=== PATIENT | male | born 1960 | race Hispanic/Latino ===

== ENCOUNTER 2023-04-24 22:20 | Observation (INO) | payer MEDICARE ==
[~2023-04-24] VITALS: Ht 170.2 cm; Wt 62.0 kg
[2023-04-24] MEDS ORDERED: NITROGLYCERIN 1GM OINT 1 INCH/1GM TD ONE (23:54)
[2023-04-24] MEDS ORDERED: GLUCAGON 1MG KIT 1 MG ML ONE (23:54)
[2023-04-24] MEDS ORDERED: METOCLOPRAMIDE 10 MG/2 ML VIAL ONE (23:54)
[2023-04-25] MEDS ORDERED: ONDANSETRON 4MG INJ IVP PRN (05:30)
[2023-04-25] MEDS ORDERED: LORAZEPAM 2 MG/ML 1 ML VIAL IVP PRN (05:30)
[2023-04-25] MEDS: LACTATED RINGERS 1000ML 1,000 ML IV SCH ×2 (05:43→22:04)
[2023-04-25 06:11] LABS: BASOPHILS # (AUTO) 0.08 K/uL (0.00-0.20); EOSINOPHILS # (AUTO) 1.51 K/uL (0.00-0.70); EOSINOPHILS % (AUTO) 18.7 % (0.0-8.0); HEMATOCRIT 40.1 % (42-54); IMMATURE GRANULOCYTE ABSOLUTE 0.06 K/uL (0-1); LYMPHOCYTES # (AUTO) 1.2 K/uL (1.0-4.8); LYMPHOCYTES % (AUTO) 14.9 % (21.0-51.0); MEAN CORPUSCULAR HGB CONC 34.9 g/dL (32.0-36.0); MEAN CORPUSCULAR VOLUME 94.6 fL (79-99); MONOCYTES # (AUTO) 0.9 K/uL (0.1-1.0); MONOCYTES % (AUTO) 11.5 % (3.0-13.0); NEUTROPHILS # (AUTO) 4.3 K/uL (1.8-7.7); NEUTROPHILS % (AUTO) 53.2 % (40.0-77.0); PLATELET COUNT (AUTO) 147 K/uL (130-400); RED BLOOD CELL COUNT(AUTO) 4.24 MIL/uL (4.50-6.20); WHITE BLOOD COUNT (AUTO) 8.1 K/uL (4.8-10.8)
[2023-04-25 06:33] LABS: SARS-CoV-2, RNA, NAAT NEGATIVE SARS CoV-2 (NEGATIVE)
[2023-04-25 06:37] LABS: INR 0.96 (0.85-1.15); PROTHROMBIN TIME 11.2 SEC (9.6-11.6)
[2023-04-25 06:38] LABS: PARTIAL THROMBOPLASTIN TIME 29.7 SEC (26.3-35.5)
[2023-04-25 06:50] LABS: ALBUMIN 3.2 g/dL (3.5-5.0); CREATININE 0.6 mg/dL (0.5-1.5); PHOSPHORUS 3.8 mg/dL (2.5-4.9); POTASSIUM 3.7 mmol/L (3.5-5.1)
[2023-04-25 06:52] LABS: BILIRUBIN,TOTAL 1.5 mg/dL (0.2-1.0); MAGNESIUM 1.9 mg/dL (1.80-2.40); TOTAL PROTEIN, SERUM 7.9 g/dL (6.0-8.3)
[2023-04-25] MEDS: FAMOTIDINE 20MG VIAL IV SCH ×2 (10:08→22:05)
[2023-04-25 12:45] LABS: APPEARANCE,URINE CLEAR (CLEAR); BILIRUBIN,URINE NEGATIVE (NEGATIVE); COLOR,URINE YELLOW (YELLOW); GLUCOSE, URINE (UA) NEGATIVE (NEGATIVE); KETONES,URINE 20 mg/dL (NEGATIVE); LEUKOCYTE ESTERASE ,URINE NEGATIVE Leu/uL (NEGATIVE); NITRATE,URINE NEGATIVE (NEGATIVE); OCCULT BLOOD,URINE NEGATIVE (NEGATIVE); PROTEIN,URINE NEGATIVE (NEGATIVE); UROBILINOGEN,URINE 0.2 mg/dL (0.2-1.0)
[2023-04-25 12:47] LABS: ADD UA MICROSCOPIC YES
[2023-04-25 12:52] LABS: MUCUS,URINE RARE LPF (None Seen); RBC,URINE 0-1 /HPF (0-1); WBC,URINE 0-1 /HPF (0-1)
[2023-04-25 13:10] VITALS: BP 138/81; PULSE 61; RESP 20
[2023-04-25] MEDS ORDERED: LIDOCAINE PF 100MG/5ML (2%) SYRINGE 5ML ONE (13:22)
[2023-04-25] MEDS ORDERED: SUCCINYLCHOLINE 200MG/10ML SYR ONE (13:22)
[2023-04-25] MEDS ORDERED: DEXAMETHASONE SOD PHOSPHATE 10MG/ML 1ML VIAL ONE (13:22)
[2023-04-25] MEDS ORDERED: MIDAZOLAM HCL 1 MG/ML 2ML VIAL ONE (13:23)
[2023-04-25] MEDS ORDERED: GLYCOPYRROLATE 1 MG/5 ML SYRINGE ONE (13:23)
[2023-04-25] MEDS ORDERED: ONDANSETRON 4MG INJ ONE (13:23)
[2023-04-25] MEDS ORDERED: NEOSTIGMINE 5MG/5ML SYR IV ONE (13:23)
[2023-04-25] MEDS ORDERED: FENTANYL CITRATE PF 50 MCG/1 ML 2ML VIAL ONE (13:24)
[2023-04-25] MEDS ORDERED: PROPOFOL 10 MG/ML 20ML VIAL IV ONE (13:24)
[2023-04-25] MEDS ORDERED: ROCURONIUM 10MG/1ML SYR 10 MG/ML ML ONE (13:24)
[2023-04-25 22:25] VITALS: BP 109/80; PULSE 80; RESP 24; O2SAT 99
[2023-04-26 03:52] VITALS: BP 130/75; PULSE 54; RESP 21
[2023-04-26 05:11] LABS: HEMATOCRIT 37.8 % (42-54); MEAN CORPUSCULAR HEMOGLOBIN 32.9 pg (27.0-33.0); MEAN CORPUSCULAR HGB CONC 34.7 g/dL (32.0-36.0); RED BLOOD CELL COUNT(AUTO) 3.98 MIL/uL (4.50-6.20); RED CELL DISTRIBUTION WIDTH 12.5 % (11.0-15.5); WHITE BLOOD COUNT (AUTO) 10.7 K/uL (4.8-10.8)
[2023-04-26 05:34] LABS: ALBUMIN 2.7 g/dL (3.5-5.0); BILIRUBIN,TOTAL 1.3 mg/dL (0.2-1.0); CREATININE 0.8 mg/dL (0.5-1.5); MAGNESIUM 1.8 mg/dL (1.80-2.40); POTASSIUM 3.9 mmol/L (3.5-5.1); TOTAL PROTEIN, SERUM 7.1 g/dL (6.0-8.3)
[2023-04-26 08:00] VITALS: O2SAT 95
[2023-04-26] MEDS: FAMOTIDINE 20MG VIAL IV SCH (08:20)
[2023-04-26 08:31] VITALS: BP 138/74; PULSE 53; RESP 17
[2023-04-26] MEDS: LACTATED RINGERS 1000ML 1,000 ML IV SCH (09:45)
[2023-04-26 12:00] VITALS: BP 137/76; PULSE 54; RESP 17
[2023-04-26 16:00] VITALS: BP 135/76; PULSE 53; RESP 18
== END 2023-04-26 19:15 | disposition home or self-care (01) ==
LOC: EDH 22:20 → EDHIP 04-25 01:48 → INTOOBSV 04-25 01:48 → 4AH 04-25 22:21
PROVIDERS: ADMIT Internal Medicine; ATTEND Internal Medicine
DX: T18.128A Food in esophagus causing other injury, initial encounter (principal); Z20.822 Contact with and (suspected) exposure to COVID-19; R13.10 Dysphagia, unspecified; E44.1 Mild protein-calorie malnutrition; E87.1 Hypo-osmolality and hyponatremia; R74.01 Elevation of levels of liver transaminase levels; F10.10 Alcohol abuse, uncomplicated; Z79.899 Other long term (current) drug therapy
CPT/HCPCS: 99285; 96374; 96376 ×2; 83735 ×2; 84100; 80053 ×2; 85025; 85610; 85730; 86850; 86900; 86901; 87040 ×2; 81001; 36415 ×2; 87635; 71045; 43247; 93005; 85027; J1610; J2765; J7120; J3490 ×4; J3010; J0330; J1100; J2710; J2001; J2250; J2704; J2405; A4215; A4657 ×3; A7002; A4216; A4606; G0378 ×7; 96375

== ENCOUNTER 2024-08-05 20:24 | Emergency (ER) | payer MEDICARE ==
[~2024-08-05] VITALS: Ht 170.2 cm; Wt 65.5 kg
--- NOTE | 2024-08-05 22:16 | ERN ---
General Chief Complaint: Thumb Injury Pain Stated Complaint: RT THUMB Time Seen by MD: 20:27 History of Present Illness Initial Comments Mr Peres is a 63-year-old male with no significant past medical history who comes in with a subcutaneous tissue prominence over his right thumb. Patient reports that this subcutaneous prominence moved more distally from the base of his thumb. The patient was concerned that he may have an obstruction of his hand veins. Patient was no pain, numbness or sensation changes. He denies any trauma Allergies: Coded Allergies: No Known Allergies (Unverified Allergy, Unknown, 04/17/18) Home Meds No Active Prescriptions or Reported Meds Past Medical History Past Medical History: No Pertinent History Past Surgical History: None ROS Dictation Constitutional: Negative for fever,chills, and weight loss Eyes: Negative for injury, pain,redness, and discharge ENT: Negative for injury,pain or swelling Cardiovascular: Negative for chest pain, palpitations, and edema Respiratory: Negative for shortness of breath, cough, and wheezing, Abdomen/GI: Negative for abdominal pain, nausea, vomiting, diarrhea, and constipation Back: Negative for injury and pain : Negative for injury, bleeding and discharge MS/Extremity: Right thumb subcutaneous prominence Skin: Negative for rash, and discoloration Neuro: Negative for headache, weakness, numbness, tingling, and seizure Psych: Negative for suicide ideation, homicidal ideation, and hallucinations Physical Exam Physical Exam Dictation General: awake, alert, NAD Head/Face: Normocephalic, atraumatic Eyes: PERRL, EOMI, vision at baseline ENT: oral cavity clear, Neck: Trachea midline, supple, no nuchal rigidity Cardiovascular: RRR, normal S1/S2, No MRGs, no JVD Respiratory: CTAB, no respiratory distress, No rales or wheezes Abdomen: Soft, non-tender, non-distended, Skin: Warm, dry, normal turgor, no rash MS/Extremity: Subcutaneous rubbery prominence over base of right thumb. No pain with palpation Neuro: COAx4, GCS 15, strength 5/5, CN 2-12 intact, normal cerebellar exam, normal gait, Psych: Normal behavior, mood, and affect normal MDM Patient appears to have a subcutaneous cyst that will need to be investigated. Patient has no disability or pain associated with this. Patient will be advised to follow up with his primary care physician MDM: Differential diagnosis: Subcutaneous cyst Rationale: Tests considered and ordered secondary to shared decision making include: Previous outside records reviewed: Old ER visits. Risk of complication and/or morbidity or mortality of patient management: None Medications-Per medication reconciliation Need for hospitalization: Patient does not meet criteria for hospitalization. Need for emergency major/minor surgery: No There are no social concerns with this patient. Prescription drug management Prescriptions will include symptomatic care Patient's prior external medical records from other ER visits were reviewed by me as indicated. Prior testing and results from previous visits were reviewed. Prior tests were taken into account with medical decision making and resource utilization, independent historian/historians were used to obtain complete medical history. I independently interpreted the test that were performed, results were reviewed by me and considered findings on radiology if ordered. Medical management and examination interpretation discussions were had by me with other qualified healthcare professionals as indicated for the patient's care. ED Course Orders Procedure Category Date Status Time Hand 3+Vws Rt RAD 08/05/24 Taken 21:00 Vital Signs Date Time Temp Pulse Resp B/P (MAP) Pulse Ox O2 Delivery O2 Flow Rate FiO2 08/05/24 20:48 97.9 69 18 112/72 98 Room Air* 0 21 08/05/24 20:26 97.5 69 18 102/71 97 Room Air 0 DX & DISP Disposition: Discharge Departure Impression: Primary Impression: Subcutaneous cyst Condition: Stable Assign Patient to: Please follow up with your primary care physician for referral to surgery for further evaluation and care. If your cyst grows, changes or is associated with the pain please come to the emergency department. Scripts No Active Prescriptions or Reported Meds Referrals: PERCY LEPE MD (PCP) GRAY HOLDEN MD Aug 05, 2024 22:16
[2024-08-05 22:21] VITALS: BP 124/72; PULSE 75; RESP 19; TEMP 98.1; O2SAT 99
--- NOTE | 2024-08-06 09:27 | HMCIMG ---
HAND 3+VWS RT REASON: promeninece over right thumb TECHNIQUE: 3 views were obtained. FINDINGS: There is no evidence of fracture or dislocation. There is no joint effusion. The soft tissues appear unremarkable. There is no evidence of a radiopaque foreign body. IMPRESSION: No acute findings.
== END 2024-08-05 22:29 | disposition home or self-care (01) ==
LOC: EDH 20:24
DX: L72.8 Other follicular cysts of the skin and subcutaneous tissue (principal)
CPT/HCPCS: 73130; 99283